=== PATIENT | male | born 1940 | race Caucasian/White ===

== ENCOUNTER 2024-01-04 19:27 | Inpatient (IN) | payer OTHER, SELFPAY ==
[2024-01-04 15:36] VITALS: BP 127/56
[2024-01-04 15:54] LABS: % Basophils 0.4 % (0-2); % Eosinophils 3.2 % (0-6); % Immature Granulocytes 0.4 % (0-0.5); % Lymphocytes 30.1 % (20.5-51.1); % Monocytes 7.6 % (1.7-9.3); % Neutrophils 58.3 % (42.2-75.2); Absolute Eosinophils 0.2 10^3/uL (0-0.7); Absolute Lymphocytes 1.7 10^3/uL (1.2-3.4); Absolute Monocytes 0.4 10^3/uL (0.1-0.6); Absolute Neutrophils 3.3 10^3/uL (1.4-6.5); Hematocrit 36.1 % (39.0-52.0); Hemoglobin 12.6 g/dL (13.0-18.0); Mean Corp Hgb Conc. 34.9 g/dL (33.0-37.0); Mean Corpuscular Hgb 30.5 pg (27.0-31.0); Mean Corpuscular Volume 87.4 fL (80.0-94.0); Mean Platelet Volume 8.8 fL (7.4-10.4); Nucleated Red Blood Cells % 0 % (-); Platelet Count 177 10^3/uL (130-400); Red Blood Cell Count 4.13 10^6/uL (4.70-6.10); Red Cell Dist. Width 13.1 % (11.5-14.5); White Blood Cell Count 5.7 10^3/uL (4.8-10.8)
[2024-01-04 16:08] LABS: Lactic Acid 0.9 mmol/L (0.7-2.0)
[2024-01-04 16:11] LABS: ALT (SGPT) 16 U/L (0-50); AST (SGOT) 30 U/L (17-59); Alkaline Phosphatase 57 U/L (38-126); Blood Urea Nitrogen 21 mg/dl (9-20); Calcium 8.7 mg/dl (8.4-10.2); Carbon Dioxide 27 mmol/L (22-30); Chloride 105 mmol/L (98-107); Glucose 126 mg/dl (70-99); Potassium 4.1 mmol/L (3.5-5.1); Sodium 136 mmol/L (135-145); Total Bilirubin 0.5 mg/dl (0.2-1.3); Total Protein 6.6 g/dl (6.3-8.2); eGFR > 60.00
--- NOTE | 2024-01-04 18:22 | ED.GENMED ---
History of Present Illness
General
Chief Complaint: Skin Problem
Source: patient and spouse
Time Seen by Provider: 01/04/24 17:07
Travel History
Have you had any contact with someone who has COVID-19?: No
Do you have any symptoms of coronavirus? Fever > 100 degrees, chills, cough, shortness of breath, sore throat, loss of taste or smell, muscle aches, or headache?: No
History of Present Illness
History of Present Illness:
83-year-old male with past medical history of coronary artery disease, hyperlipidemia, GERD presenting to the emergency department at the request of primary care physician after the primary care sent patient to an outpatient ultrasound study to rule
out DVT due to the patient experiencing pain, swelling and erythema to the left lower extremity over the last 3 days and ultimately was found to have a large complex fluid collection suspecting to be an abscess within the left lower extremity.
Patient was started on antibiotics by urgent care 3 days ago taking Keflex and doxycycline, saw primary care 2 days ago who ordered the ultrasound for today and upon getting the results back advised patient go to the emergency department for further
evaluation and treatment spouse notes that around a year or so ago patient had cellulitis to his right lower extremity that required multiple rounds of antibiotics and ultimately admission with IV antibiotics for resolution. Patient states he
believes he had 1 day of a tactile fever but never actually took his temperature. No other concerns at time.
Past History
Past History
ED Past Medical History: CAD, GERD, HTN, Hypercholesterolemia and Other (Urinary retention)
ED Past Surgical History: Cardiac
Social History
Tobacco: Non-smoker
Alcohol: None
Drug: None
Personal:
Living: with family
Review of Systems
Review of Systems
All Other Systems: ROS reviewed and negative except as documented in HPI and ROS
Phy Exam
Physical Exam
Physical Exam:
GENERAL: Alert , in no apparent distress
EYE: pupils equal and reactive
NECK: Supple, no significant adenopathy.
ENT: o/p clr, mmm.
NEUROLOGICAL: Alert and oriented
SKIN: Warm and dry, large area of erythema along the medial aspect of the left proximal tib-fib region with large area of induration and fluctuance. Erythema extends outside of the demarcated area that did on Sunday. It is hot to the touch
and tender. Area of erythema measures greater than 6 cm
MUSCULOSKELETAL: Nonpitting edema left lower extremity from the knee distal extending towards the ankle, well perfused.
PSYCH: Normal and appropriate interaction.
Scores
Heart Failure Risk
Heart Failure Risk Score: Not Applicable
Heart Score for Chest Pain Patients
STEMI patient?: Not applicable
Withdrawal Assessment of Alcohol
Withdrawal Assessment Completed?: Not applicable
Course
Orders/Labs/Results
Orders:
Orders
01/04/24 15:45
Blood Culture Q30M
NADIYA Source: Blood/Venous
Specimen Description:
Comment: FROM 2 SEPARATE SITES
01/04/24 15:48
Complete Blood Count/With Diff Urgent
Comprehensive Metabolic Panel Urgent
Lactic Acid Q4H
Comment: ON ICE, CANCEL 2ND ORDER IF FIRST LACTIC ACID LEVEL <2
Blood Culture Q30M
NADIYA Source: Blood/Venous
Specimen Description:
Comment: FROM 2 SEPARATE SITES
01/04/24 17:54
Piperacillin/Tazo 3.375 Gram [Zosyn] 3.375 gram in 50 ml IV NOW
Vancomycin [Vancocin] 2,000 mg 0.9% Sodium Chloride 500 ml [Nss] 500 ml IV NOW
01/04/24 19:45
Lactic Acid Q4H
Comment: ON ICE, CANCEL 2ND ORDER IF FIRST LACTIC ACID LEVEL <2
Abnormal Lab Results
01/04/24
15:48
RBC 4.13 L 10^6/uL
(4.70-6.10)
Hgb 12.6 L g/dL
(13.0-18.0)
Hct 36.1 L %
(39.0-52.0)
BUN 21 H mg/dl
(9-20)
Glucose 126 H mg/dl
(70-99)
01/04/24 15:48
01/04/24 15:48
Vital Signs
Initial and Last Documented VS:
Initial Vital Signs
Temp Pulse Resp BP Pulse Ox
97.8 F 66 16 127/56 96
01/04/24 15:36 01/04/24 15:36 01/04/24 15:36 01/04/24 15:36 01/04/24 15:36
Last Documented Vital Signs
Temp Pulse Resp BP Pulse Ox
97.8 F 66 16 127/56 96
01/04/24 15:36 01/04/24 15:36 01/04/24 15:36 01/04/24 15:36 01/04/24 15:36
Procedures
Incision/Drainage/Joint Aspiration
Left Lower Leg:
Anethesia: 1% Lidocaine with Epi
Preparation: cleaned with Hibiclens
Type of procedure: incise and drain
Nature of site: abscess
Description of abscess: greater than 3cm
Loculations broken up: No
How much fluid was obtained?: scant amount
Fluid description: purulent
Treatment: left open for drainage
MDM/Problems Addressed
Differential Diagnosis Includes:
Abscess, cellulitis, failed outpatient antibiotic, hematoma, I do not have concern for DVT or phlebitis given ultrasound done today shows no evidence for this.
MDM/Problems Addressed:
83-year-old male present emergency department at request of primary care physician to be evaluated for a deep space abscess in the left lower extremity despite being on Keflex and doxycycline for 3 days. I attempted incision and drainage as above
however unfortunately the area is mostly indurated with the abscess pocket being much deeper than I felt comfortable draining. I did obtain a very scant amount of purulence and I did culture this area. Will initiate broad-spectrum antibiotics with
vancomycin and Zosyn. Anticipate patient will need general surgery consult. Patient and are in agreement with this treatment plan.
*Pulse Oximetry
Patient hypoxic: no
*Critical Care Note
Total Time (30-74mins, 75-104mins- exclusive of procedures): Not Applicable
Data Reviewed
Review of Other/Old Records Reveals: Labs, Records and Radiology Studies
Source: patient and spouse
Patient Management
Discussion with other providers: Hospitalist
Escalation/DeEscalation of care consider admission/obs:
Hospitalist is aware and accepts for continued evaluation and treatment
ED Attending Note
-
Portions of this chart may have been created with voice recognition software.� Occasional wrong word or��sound alike� substitutions may have occurred due to the inherent limitations of voice recognition software.
Discharge Plan
Departure
Patient Disposition: Admit
Date of Disposition: 01/04/24
Time of Disposition: 18:22
Presentation/result/management discussed w/ accepting MD/DO: Hospitalist
Discharge Problem:
Abscess of left lower extremity, Cellulitis of left lower extremity
Prescriptions:
No Action
aspirin 81 MG tablet,delayed release (DR/EC)
81 mg PO DAILY
acetaminophen [Tylenol Extra Strength] 500 MG tablet
1,000 mg PO Q6HPRN PRN (Reason: mild pain)
omeprazole 20 MG capsule,delayed release(DR/EC)
20 mg PO DAILY
rosuvastatin [Crestor] 40 MG tablet
40 mg PO DAILY
doxycycline hyclate 100 mg Capsule
100 mg PO BID
Patient Comments:
PATIENT STARTED ON 01/03/24
cephalexin 500 mg Capsule
500 mg PO QID
Patient Comments:
PATIENT STARTED ON 01/03/24
Referrals:
Surekha Mcdonnell MD [Family Provider] -
Interventions
Interventions:
*Risk Screen - Suicide Last Done: 01/04/24 15:36
*General Assessment Last Done: 01/04/24 15:36
*Neglect/Abuse Screening Last Done: 01/04/24 15:36
[2024-01-04 18:48] VITALS: BP 124/64
[2024-01-04] MEDS: ZOSYN 50 IV (18:56)
--- NOTE | 2024-01-04 19:00 | HPS.HSE ---
Family Physician
-
Family Physician: Surekha Mcdonnell
Chief Complaint
-
leg abscess
History of Present Illness
83-year-old male past medical history of paroxysmal atrial fibrillation, basal cell carcinoma chest wall, CAD, BPH, GERD, hypertension, hyperlipidemia, hemochromatosis carrier, cataracts, hearing loss presenting with left lower extremity pain,
swelling and erythema which started 3 days ago. Patient was started on Keflex 2 days ago without improvement. Today he was on doxycycline. He had outpatient ultrasound which showed complex fluid collection and referred to the emergency room. He
did have some chills and night sweats 2 nights ago. He denies any nausea vomiting or diarrhea. He denies any trauma or bug bites to the leg. He recently returned from [place] 2 weeks ago.
His alcohol occasionally. He denies any smoking.
Medical History
Past Medical History
Past Medical History: Reports Other (paroxysmal atrial fibrillation, basal cell carcinoma chest wall, CAD, BPH, GERD, hypertension, hyperlipidemia, hemochromatosis carrier, cataracts, hearing loss)
Past Surgical History: Reports None
Social History
Tobacco: Non-smoker
Alcohol: Occasional
Drug: None
Family History
Family History: Not pertinent
Allergies / Home Medications
Allergies reflects when Allergies were last updated in [facility].
Home Medications with original date entered in [facility]
Allergy/Medication List:
Allergies
Allergy/AdvReac Type Severity Reaction Status Date / Time
No Known Allergies Allergy Verified 01/04/24 15:35
Home Medications
acetaminophen 500 mg tablet (Tylenol Extra Strength) 1,000 mg PO Q6HPRN PRN mild pain 04/17/22
aspirin 81 mg tablet,delayed release 81 mg PO DAILY Blood clot prevention/tx 04/17/22
omeprazole 20 mg capsule,delayed release 20 mg PO DAILY Gastrointestinal issue 04/17/22
rosuvastatin 40 mg tablet (Crestor) 40 mg PO DAILY High cholesterol 04/17/22
cephalexin 500 mg capsule 500 mg PO QID 01/04/24
doxycycline hyclate 100 mg capsule 100 mg PO BID 01/04/24
Review of Systems
-
History Source: Patient
A 12 point ROS was completed and negative except as noted: Yes
Constitutional: Reports No Symptoms
EENT: Reports No Symptoms
Respiratory: Reports No Symptoms
Cardiac: Reports No Symptoms
Abdomen/GI: Reports No Symptoms
: Reports No Symptoms
Musculoskeletal: Reports No Symptoms
Skin: Reports See HPI
Neurological: Reports No Symptoms
Endocrine: Reports No Symptoms
Hematologic/Lymphatic: Reports No Symptoms
Psych: Reports No Symptoms
Physical Exam
Vital Signs
Vital Signs
Temp Pulse Resp BP Pulse Ox
98.4 F 56 16 124/64 95
01/04/24 18:48 01/04/24 18:48 01/04/24 15:36 01/04/24 18:48 01/04/24 18:48
Physical Exam
General: Well Developed, Well Nourished and No Apparent Distress
HEENT: NormoCephalic, Moist mucous membranes and Atraumatic
Respiratory: Clear
Cardiac: S1/S2 and Regular Rhythm; No Murmur or Rub
GI: Soft, Non Tender, Non Distended and Normal Bowel Sounds; No Organomegaly
Rectal: Deferred by Provider
Musculoskeletal: No Clubbing, No Cyanosis and No Edema
Skin: Other (left lower extremity swelling and erythema ); No Rash
Neuro: Nonfocal/grossly intact
Laboratory Results
-
01/04/24 15:48
01/04/24 15:48
Laboratory Results
Lactic Acid 0.9 mmol/L (0.7-2.0) 01/04/24 15:48
Total Bilirubin 0.5 mg/dl (0.2-1.3) 01/04/24 15:48
AST 30 U/L (17-59) 01/04/24 15:48
ALT 16 U/L (0-50) 01/04/24 15:48
Alkaline Phosphatase 57 U/L (38-126) 01/04/24 15:48
Data Reviewed
-
Lab Data: Labs Reviewed by me
Old Records: Reviewed
Impression/Plan
-
IMPRESSION:
PLAN:
# Left lower extremity abscess
-Ultrasound shows 4.9 complex fluid collection in the subcutaneous tissues in the medial proximal calf
-Attempted to be drained by ER but was too deep although some sample was sent for culture
-Blood cultures pending
-Vancomycin/Zosyn given in ER. Continue vancomycin
-general surgery consulted for drainage
Coronary artery disease as per stents/CABG
-Continue aspirin
Brief postoperative paroxysmal atrial fibrillation after CABG
-Not on anticoagulation
Essential hypertension
Hyperlipidemia
-Continue statin
BPH
GERD
-Continue omeprazole
Hemochromatosis carrier
Cataracts
Hearing loss
Constipation
Do not intubate/ CPR only
DVT prophylaxis�heparin
Regular diet
[2024-01-04] MEDS: VANCOCIN 540 MG IV (19:36)
[2024-01-04 19:37] VITALS: BMI 28.7
[2024-01-04 21:33] VITALS: BP 131/65; BMI 27.4
--- NOTE | 2024-01-04 21:39 | PHA.VAN.IN ---
Assessment
- Assessment
Renal Function: Appears similar to baseline
Concomitant Antimicrobials: NONE
- Previous Dosing Experience
Previous Regimen: NONE
AUC Dosing Plan
- Empiric Dosing
Initial / Loading Dose: 2GM
Maintenance Regimen: 1500MG IV Q24H
Estimated AUC (mcg*h/mL): 536
Estimated Peak (mcg*h/mL): 37.2
Estimated Trough (mcg/ml): 11.9
Estimated Half Life (H): 13.6
Pharmacokinetics Vancomycin I
- -
Patient Age: 83
Patient Sex: Male
Vancomycin Day #: 1
Indication: Skin And Soft Tissue (LLE ABSCESS)
Requesting Provider: LEONELA
Height / Weight:
Height 5 ft 8 in
Actual Weight 81.647 kg
Pertinent Past Medical History: BASAL CELL CA; FAILED OUTPT [place]
- Vital Signs / Lab Results
Temp Pulse Resp BP Pulse Ox
97.9 F 56 18 131/65 97
01/04/24 21:33 01/04/24 21:33 01/04/24 21:33 01/04/24 21:33 01/04/24 21:33
Lab Results - Hematology
01/04/24
15:48
WBC 5.7
Lab Results - Chemistry
01/04/24
15:48
BUN 21 H
Creatinine 1.0
Albumin 4.0
01/04/24 01/04/24
15:48 19:45
Lactic Acid 0.9 Cancelled
[2024-01-04] MEDS: HEPARIN 5000 UNITS SC (21:54)
--- NOTE | 2024-01-04 22:33 | PTCARENOTE ---
Receive pt from ER. Pt alert oriented X3, calm and cooperative, in no distress. Pt assist X1 to his bed, steady. Pt oriented to the room, call horan within reach. Pt denies pain, fever or chills. Left lower extremity with [place] wrap around the knee.
VSS (T=97.9, HR=56, RR=18, XG=018/65, SpO2=97% on RA). IV Vancomycin infusing. Will continue to monitor the pt.
[2024-01-04 23:58] VITALS: BP 129/64
[2024-01-05] MEDS: VANCOCIN 300 ML IV (05:28)
[2024-01-05] MEDS: VANCOCIN 300 MG IV (05:28)
[2024-01-05 07:12] LABS: % Basophils 0.6 % (0-2); % Eosinophils 4.5 % (0-6); % Immature Granulocytes 0.2 % (0-0.5); % Lymphocytes 29.2 % (20.5-51.1); % Monocytes 8.8 % (1.7-9.3); % Neutrophils 56.7 % (42.2-75.2); Absolute Eosinophils 0.2 10^3/uL (0-0.7); Absolute Lymphocytes 1.5 10^3/uL (1.2-3.4); Absolute Monocytes 0.5 10^3/uL (0.1-0.6); Absolute Neutrophils 2.9 10^3/uL (1.4-6.5); Hematocrit 34.3 % (39.0-52.0); Hemoglobin 12.2 g/dL (13.0-18.0); Mean Corp Hgb Conc. 35.6 g/dL (33.0-37.0); Mean Corpuscular Hgb 30.7 pg (27.0-31.0); Mean Corpuscular Volume 86.4 fL (80.0-94.0); Mean Platelet Volume 9.2 fL (7.4-10.4); Nucleated Red Blood Cells % 0 % (-); Platelet Count 176 10^3/uL (130-400); Red Blood Cell Count 3.97 10^6/uL (4.70-6.10); Red Cell Dist. Width 12.7 % (11.5-14.5); White Blood Cell Count 5.1 10^3/uL (4.8-10.8)
[2024-01-05 07:21] VITALS: BP 130/70
[2024-01-05 07:34] LABS: ALT (SGPT) 14 U/L (0-50); AST (SGOT) 27 U/L (17-59); Albumin 3.5 g/dl (3.5-5.0); Alkaline Phosphatase 63 U/L (38-126); Blood Urea Nitrogen 17 mg/dl (9-20); Calcium 8.6 mg/dl (8.4-10.2); Carbon Dioxide 27 mmol/L (22-30); Chloride 106 mmol/L (98-107); Estimated Creatinine Clearance 70 ml/min; Glucose 88 mg/dl (70-99); Sodium 138 mmol/L (135-145); Total Bilirubin 0.4 mg/dl (0.2-1.3); Total Protein 5.9 g/dl (6.3-8.2); eGFR > 60.00
--- NOTE | 2024-01-05 09:17 | PHA.VAN.FU ---
Vancomycin Assessment / Plan
- Assessment
Renal Function: Stable
WBC's are: WNL
In the past 24 hrs, patient has been: Afebrile
- Dosing Plan
Continue: vancomycin 1500 mg q24h - first dose 01/04 06
- Monitoring Plan
No level(s) ordered at this time: consider levels after Sunday AM dose ( 4th total dose)
- Follow Up
Pharmacy will continue to follow.
Vancomycin Follow UP
- -
Patient Age: 83
Patient Sex: Male
Vancomycin Day #: 2
Indication: Skin And Soft Tissue (LLE ABSCESS)
Requesting Provider: LEONELA
Height / Weight:
Height 5 ft 8 in
Actual Weight 81.647 kg
Pertinent Past Medical History: BASAL CELL CA; FAILED OUTPT [place]
- Vital Signs / Lab Results
Temp Pulse Resp BP Pulse Ox
98.4 F 65 14 130/70 93
01/05/24 07:21 01/05/24 07:21 01/05/24 07:21 01/05/24 07:21 01/05/24 07:21
Lab Results - Hematology
01/04/24 01/05/24
15:48 05:51
WBC 5.7 5.1
Lab Results - Chemistry
01/04/24 01/05/24
15:48 05:51
BUN 21 H 17
Creatinine 1.0 0.8
Estimated Creat Clear 70
Albumin 4.0 3.5
01/04/24 01/04/24
15:48 19:45
Lactic Acid 0.9 Cancelled
[2024-01-05] MEDS: CRESTOR 40 MG PO (09:32)
[2024-01-05] MEDS: PROTONIX 40 MG PO (09:32)
[2024-01-05] MEDS: ASPIR LOW (ENTERIC COATED) 81 MG PO (09:32)
[2024-01-05] MEDS: HEPARIN SC (09:35)
[2024-01-05] MEDS: DILAUDID 0.5 MG IV (09:51)
--- NOTE | 2024-01-05 11:05 | CON.GS ---
Addendum entered and electronically signed by Steven Leavitt MD 01/05/24 11:58:
Patient seen and examined with resident. Agree with assessment plan as documented below.
Patient is an 83 yo M with a PMH of HTN, HLD, CAD s/p CABG, A-fib (perioperatively, on ASA), BPH, hemochromatosis carrier, and BCC. He has had prior issues with RLE cellulitis back in 2022. He presents with an area overlying his medial LEFT knee
with erythema, swelling, and pain. He initially presented to an urgent care where reportedly he had an ultrasound which demonstrated a 5 cm fluid collection. He was initially prescribed Keflex with no significant improvement. He presented to the
ER after no improvement on Doxycycline. No reported trauma. He did recently return from a trip to [place], but denies any known bites or breaks in the skin overlying this area. I&D performed in the ED with concern for incomplete drainage.
Overnight he noticed increased drainage with significant improvement in the swelling. He notes improvement in pain and erythema.
Gen: NAD
LLE: 2 cm area overlying medial LEFT knee with erythema, and swelling, 2 cm skin incision from ED, minimal bloody drainage, erythema receded from prior markings, minimal pain, mild palpable remaining fluctuance
Wound cultures obtained at bedside. Area probed with Q-tip and a clamp popping into the pocket and releasing a small amount of serous and bloody drainage, no mary lou purulence. Patient tolerated bedside procedure well. Area packed with dry gauze,
covered with dry gauze, Luke wrap, and Toy wrap.
83 year old M history of CABG (2016), RLE cellulitis (2022) who presented to ED 01/04/24 with mild LLE pain and outpatient ultrasound imaging concerning for LLE abscess. Collection was successfully drained this AM at bedside.
Recommendations:
- Regular diet
- DC on 7-10 days PO antibiotics, will need to follow-up on wound culture data and change as necessary
- Wound care: remove packing in 24 hours, cover with dry gauze daily and as needed, hold in place with Kerlix and TOY
- Limit activities for 1-2 weeks
- Continue other active home medications
- OK for DC from surgical perspective.
Original Note:
Consultation
-
Reason for Consultation: RLE Abscess
Medical History
-
Chief Complaint: Leg Pain
History of Present Illness:
83 year old M history of CABG (2016), RLE cellulitis (2022) who presented to ED 01/04/24 with outpatient ultrasound imaging concerning for LLE abscess. Per patient, noted some mild knee pain a few days prior with walking. who is a nurse noted
small confluent mass and surrounding area of erythema surrounding RLE and was advised to visit urgent care. LE duplex ultrasound performed showed no evidence of DVT but noted a complex collection of fluid concerning for abscess. Patient was started
on keflex and doxycycline and advised to come to ED, where drainage was attempted but minimal drainage given apparent deep nature. Patient denies any symptoms beyond mild discomfort with extended periods of walking. He did recently return from a
trip to [facility] where he notes no possible injuries and denies knowledge of any insect bites. Other relevant history includes an episode of RLE cellulitis in 2022, CABG with Right SVG harvest in 2016, and LLE vein stripping for varicose
veins.
General surgery was consulted for assistance with drainage and he was subsequently admitted to [facility]. Overnight, patient felt a 'pop' while laying on left side and noted drainage to increase.
On examination this AM, light pressure led to drainage of serous fluid. At bedside, a sterile roel clamp was used to spread the incision to confirm entrance into abscess cavity. 2 sets of cultures were sent, the wound was packed with gauze and
further secured with additional toy wrap.
Past Medical History
Past Medical History: Reviewed & Noncontributory
Past Surgical History: Reviewed & Noncontributory
Allergies / Home Medications
Allergy/AdvReac Type Severity Reaction Status Date / Time
No Known Allergies Allergy Verified 01/04/24 15:35
Medication Instructions Recorded Confirmed Type
acetaminophen 500 mg tablet 1,000 mg PO Q6HPRN PRN mild pain 04/17/22 01/04/24 History
(Tylenol Extra Strength)
aspirin 81 mg tablet,delayed 81 mg PO DAILY Blood clot 04/17/22 01/04/24 History
release prevention/tx
omeprazole 20 mg capsule,delayed 20 mg PO DAILY Gastrointestinal 04/17/22 01/04/24 History
release issue
rosuvastatin 40 mg tablet (Crestor) 40 mg PO DAILY High cholesterol 04/17/22 01/04/24 History
cephalexin 500 mg capsule 500 mg PO QID 01/04/24 01/04/24 History
doxycycline hyclate 100 mg capsule 100 mg PO BID 01/04/24 01/04/24 History
Review of Systems
-
All other systems: Negative unless noted
A 10 point review of systems was completed, and was negative except as per HPI.
Physical Exam
Vital Signs
Temp Pulse Resp BP Pulse Ox
98.4 F 65 14 130/70 93
01/05/24 07:21 01/05/24 07:21 01/05/24 07:21 01/05/24 07:21 01/05/24 07:21
01/04/24 01/05/24 01/06/24
06:59 06:59 07:59
Actual Weight 81.647 kg
Body Mass Index (BMI) 27.4
Lab Results
01/05/24 05:51
01/05/24 05:51
WBC 5.1 10^3/uL (4.8-10.8) 01/05/24 05:51
Hgb 12.2 g/dL (13.0-18.0) L 01/05/24 05:51
Hct 34.3 % (39.0-52.0) L 01/05/24 05:51
Plt Count 176 10^3/uL (130-400) 01/05/24 05:51
Abs Immat Gran (auto) 0.0 10^3/uL (0-0.05) 01/05/24 05:51
Neutrophils % 56.7 % (42.2-75.2) 01/05/24 05:51
Physical Exam
General: Well Developed
HEENT: Normocephalic
Respiratory: Clear
Cardiac: S1/S2
GI: Soft, Non Tender and Non Distended
Skin: Warm and Other (3x3cm confluent collection noted immediately inferomedial to patella with surrounding erythema, draining SS fluid )
Data Reviewed
-
Labs: Labs Reviewed by me and Discussed with Physician
Assessment / Plan
-
83 year old M history of CABG (2016), RLE cellulitis (2022) who presented to ED 01/04/24 with mild LLE pain and outpatient ultrasound imaging concerning for LLE abscess. Collection was successfully drained this AM at bedside.
Recommendations:
- OK to resume diet
- Defer discharge planning to main provider team, but OK for discharge from general surgery standpoint
- Continue other active home medications
- Please advise patient to change abscess site with gauze daily. No packing necessary.
- Follow-up lab cultures for outpatient antibiotic adjustment as necessary.
--- NOTE | 2024-01-05 14:08 | W.PN.HOSP.TC ---
Today's Communication/Plan
-
see A/P
Assessment / Plan
Assessment / Plan
83-year-old male past medical history of paroxysmal atrial fibrillation, basal cell carcinoma chest wall, CAD, BPH, GERD, hypertension, hyperlipidemia, hemochromatosis carrier, cataracts, hearing loss; p/w left lower extremity pain, swelling and
erythema which started 3 days ago [employer].�
Patient was started on Keflex 2 days ago [employer] without improvement.�He was on doxycycline.� He had outpatient ultrasound which showed complex fluid collection and referred to the emergency room.�
He did have some chills and night sweats 2 nights ago [employer].�He recently returned from [place] 2 weeks ago.
His alcohol occasionally.� He denies any smoking.
A/P:
# Left lower extremity abscess below knee
Ultrasound shows 4.9 complex fluid collection in the subcutaneous tissues in the medial proximal calf
Attempted to be drained by ER but was too deep although some sample was sent for culture
s/p bedside drainage by GS
Follow blood Cx, follow wound Cx
Cont Vancomycin, add Ancef
Check BL LE US (recent long flight)
# Coronary artery disease as per stents/CABG
Continue aspirin
# Brief postoperative paroxysmal atrial fibrillation after CABG
Not on anticoagulation
# Essential hypertension
# Hyperlipidemia
Continue statin
# BPH
# GERD
Continue omeprazole
# Hemochromatosis carrier
# Cataracts
# Hearing loss
# Constipation
Do not intubate/ CPR only
DVT prophylaxis�heparin SQ
Regular diet
DW at bedside
Anticipated Discharge: Within 24 hours
Subjective/Interval History
-
Date of Service: January 05, 2024
Objective Data
-
Labs:
Laboratory Results
01/05/24
05:51
WBC 5.1
Hgb 12.2 L
Hct 34.3 L
Plt Count 176
Sodium 138
Potassium 4.0
Chloride 106
Carbon Dioxide 27
BUN 17
Creatinine 0.8
Glucose 88
Calcium 8.6
Total Bilirubin 0.4
AST 27
ALT 14
Alkaline Phosphatase 63
Vital Signs:
Vital Signs
Temp Pulse Resp BP Pulse Ox
36.9 C 65 14 130/70 93
01/05/24 07:21 01/05/24 07:21 01/05/24 07:21 01/05/24 07:21 01/05/24 12:44
I&O
01/04/24 01/05/24 01/06/24
06:59 06:59 07:59
Intake Total 300 / 300
Output Total 750 / 750
Balance -450 / -450
Review of Systems
-
All other systems: Reviewed and negative
Skin: Reports Other (L abscess below the knee)
Physical Exam
-
General: Well Developed, Well Nourished, No Apparent Distress, Comfortable and Conversant; Negative Respiratory Distress
HEENT: Normocephalic, Atraumatic, Nose Appears Normal and Ears Appear Normal; Negative Oxygen
Respiratory: Clear to Auscultation and Non Labored Respirations; Negative Accessory Resp Muscle Use
Cardiac: Regular Rhythm and S1/S2
GI: Soft, Nontender, Nondistended and Normal Bowel Sounds
Skin: Warm, Dry and Lesions (L abscess drained, dressed)
Neuro: Awake, Alert, Oriented, AO x 3 and Nonfocal/Grossly Intact
Psych: Calm and Intact Judgement/Insight
Data Reviewed
-
Labs: Labs Reviewed by me
[2024-01-05 15:26] VITALS: BP 115/63
[2024-01-05] MEDS: ANCEF 5 IV ×2 (15:59→23:00)
[2024-01-05] MEDS: MELATONIN 5 MG PO (21:22)
[2024-01-05 23:24] VITALS: BP 127/59
[2024-01-06] MEDS: VANCOCIN 300 ML IV (06:18)
[2024-01-06] MEDS: VANCOCIN 300 MG IV (06:18)
[2024-01-06] MEDS: TUMS 2 TABLET PO (06:18)
[2024-01-06 06:40] LABS: Hematocrit 35.9 % (39.0-52.0); Hemoglobin 12.8 g/dL (13.0-18.0); Mean Corp Hgb Conc. 35.7 g/dL (33.0-37.0); Mean Corpuscular Hgb 30.9 pg (27.0-31.0); Mean Corpuscular Volume 86.7 fL (80.0-94.0); Mean Platelet Volume 8.8 fL (7.4-10.4); Platelet Count 178 10^3/uL (130-400); Red Blood Cell Count 4.14 10^6/uL (4.70-6.10); Red Cell Dist. Width 12.9 % (11.5-14.5); White Blood Cell Count 4.9 10^3/uL (4.8-10.8)
[2024-01-06 07:04] LABS: Blood Urea Nitrogen 18 mg/dl (9-20); Calcium 9.2 mg/dl (8.4-10.2); Carbon Dioxide 26 mmol/L (22-30); Chloride 103 mmol/L (98-107); Estimated Creatinine Clearance 70 ml/min; Glucose 104 mg/dl (70-99); Sodium 138 mmol/L (135-145); eGFR > 60.00
[2024-01-06 07:18] VITALS: BP 119/62
--- NOTE | 2024-01-06 07:36 | PTCARENOTE ---
Pt states his indigestion from overnight has not resolved and he is having chest pain with radiation to his left chest. Ekg performed and MD notified. Vitals 119/62 hr 60
[2024-01-06] MEDS: ANCEF 5 IV (08:21)
[2024-01-06] MEDS: ASPIR LOW (ENTERIC COATED) 81 MG PO (08:23)
[2024-01-06] MEDS: CRESTOR 40 MG PO (08:23)
[2024-01-06] MEDS: PROTONIX 40 MG PO (08:23)
[2024-01-06 09:14] LABS: Troponin I < 0.012 ng/ml
--- NOTE | 2024-01-06 10:35 | W.PN.SURGUPD ---
Surgical Update
Surgical Update
Patient clinically stable with signs of improvement in erythema and swelling. Afebrile, WBC normal. Cultures show WBC, no microorganisms. US lower extremities to rule out DVT pending. Dressing changed by surgery today. Okay to DC from surgical
perspective. Please call with any questions or concerns.
--- NOTE | 2024-01-06 10:40 | PHA.VAN.FU ---
Vancomycin Assessment / Plan
- Assessment
Renal Function: Stable
WBC's are: WNL
In the past 24 hrs, patient has been: Afebrile
Concomitant Antimicrobials: cefazolin
- Dosing Plan
Continue: vancomycin 1500 mg q24h - first maint dose 01/05/24 0600
- Monitoring Plan
No level(s) ordered at this time: likely DC within 24 hours; will order levels if still here after tomorrow
- Follow Up
Pharmacy will continue to follow.
Vancomycin Follow UP
- -
Patient Age: 83
Patient Sex: Male
Vancomycin Day #: 3
Indication: Skin And Soft Tissue (LLE ABSCESS)
Requesting Provider: LEONELA
Height / Weight:
Height 5 ft 8 in
Actual Weight 81.647 kg
Pertinent Past Medical History: BASAL CELL CA; FAILED OUTPT [place]
- Vital Signs / Lab Results
Temp Pulse Resp BP Pulse Ox
97.8 F 60 16 119/62 95
01/06/24 07:18 01/06/24 07:18 01/06/24 07:18 01/06/24 07:18 01/06/24 07:18
Lab Results - Hematology
01/04/24 01/05/24 01/06/24
15:48 05:51 06:15
WBC 5.7 5.1 4.9
Lab Results - Chemistry
01/04/24 01/05/24 01/06/24
15:48 05:51 06:15
BUN 21 H 17 18
Creatinine 1.0 0.8 0.8
Estimated Creat Clear 70 70
Albumin 4.0 3.5
01/04/24 01/04/24
15:48 19:45
Lactic Acid 0.9 Cancelled
Microbiology Results
01/05/24 09:58 Wound Culture - Preliminary
Leg - Left Gram Stain - Preliminary
01/05/24 09:58 Anaerobic Culture - Preliminary
Leg - Left Culture pending. Anaerobic cultures are examined after 3
days incubation. Additional information to follow.
01/04/24 23:10 MRSA Screen - Final
Nose No Methicillin Resistant Staphylococcus aureus isolated.
01/04/24 18:43 Blood Culture - Preliminary
Blood/Venous No Growth in 24 hours- Final report to follow
01/04/24 15:48 Blood Culture - Preliminary
Blood/Venous No Growth in 24 hours- Final report to follow
01/04/24 18:43 Gram Stain - Preliminary
Leg - Left
--- NOTE | 2024-01-06 11:12 | W.PN.HOSP.TC ---
Addendum entered and electronically signed by Ilana Quiles MD 01/06/24 14:26:
total DC time 35 min
Original Note:
Today's Communication/Plan
-
see A/P
Assessment / Plan
Assessment / Plan
83-year-old male past medical history of paroxysmal atrial fibrillation, basal cell carcinoma chest wall, CAD, BPH, GERD, hypertension, hyperlipidemia, hemochromatosis carrier, cataracts, hearing loss; p/w left lower extremity pain, swelling and
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
Patient was started on Keflex 2 days ago CHIEF OPERATING ENGINEER without improvement.�He was on doxycycline.� He had outpatient ultrasound which showed complex fluid collection and referred to the emergency room.�
He did have some chills and night sweats 2 nights ago CHIEF OPERATING ENGINEER.�He recently returned from [place] 2 weeks ago.
His alcohol occasionally.� He denies any smoking.
A/P:
# Left lower extremity abscess below knee
Ultrasound shows 4.9 complex fluid collection in the subcutaneous tissues in the medial proximal calf
Attempted to be drained by ER but was too deep although some sample was sent for culture
s/p bedside drainage by 01/04
Blood Cx negative.
Pending wound Cx- can follow up outpatient.
Cont Vancomycin, added Ancef -> can discharge on Keflex and Doxycycline for total 14 days (avoid sun and milk/dairy product while on doxycycline)
BL LE US neg for DVT
# Chest pain likely due to dyspepsia, resolved
EKG unrevealing
trop neg
# Coronary artery disease as per stents/CABG
Continue aspirin
# Brief postoperative paroxysmal atrial fibrillation after CABG
Not on anticoagulation
# Essential hypertension
# Hyperlipidemia
Continue statin
# BPH
# GERD
Continue omeprazole
# Hemochromatosis carrier
# Cataracts
# Hearing loss
# Constipation
Do not intubate/ CPR only
DVT prophylaxis�heparin SQ
Regular diet
DW RN
called x2 to update, call not answered
Anticipated Discharge: Today
Subjective/Interval History
-
Date of Service: January 06, 2024
Objective Data
-
Labs:
Laboratory Results
01/06/24
06:15
WBC 4.9
Hgb 12.8 L
Hct 35.9 L
Plt Count 178
Sodium 138
Potassium 4.0
Chloride 103
Carbon Dioxide 26
BUN 18
Creatinine 0.8
Glucose 104 H
Calcium 9.2
Vital Signs:
Vital Signs
Temp Pulse Resp BP Pulse Ox
36.6 C 60 16 119/62 95
01/06/24 07:18 01/06/24 07:18 01/06/24 07:18 01/06/24 07:18 01/06/24 07:18
I&O
01/05/24 01/06/24 01/07/24
05:59 06:59 06:59
Intake Total
Output Total
Balance
Review of Systems
-
All other systems: Reviewed and negative
Skin: Reports Other (L abscess below the knee s/p I/D)
Physical Exam
-
General: Well Developed, Well Nourished, No Apparent Distress, Comfortable and Conversant; Negative Respiratory Distress
HEENT: Normocephalic, Atraumatic, Nose Appears Normal and Ears Appear Normal; Negative Oxygen
Respiratory: Clear to Auscultation and Non Labored Respirations; Negative Accessory Resp Muscle Use
Cardiac: Regular Rhythm and S1/S2
GI: Soft, Nontender, Nondistended and Normal Bowel Sounds
Skin: Warm, Dry and Lesions (L abscess belowthe knee drained, dressed)
Neuro: Awake, Alert, Oriented, AO x 3 and Nonfocal/Grossly Intact
Psych: Calm and Intact Judgement/Insight
Data Reviewed
-
Ultrasound: Report Reviewed by me and Discussed with Patient
Labs: Labs Reviewed by me
[2024-01-06 12:27] VITALS: BP 124/65
--- NOTE | 2024-01-06 13:45 | CM ---
CM following re: d/c planning
Chart reviewed
CM met with the patient & his spouse at bedside; IA completed
Pt states he and his spouse in a 2SH with 2 or 3STE and a full flight to the 2nd floor
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
Pt has no previous SNF hx, has had home care however doesn't recall the agency; and has a r/w and pair of crutches for use if needed
Pt has prescription coverage and rx's are filled at [facility] on [address] Lenora Adorno
Pt PCP-Surekha Mcdonnell
Pt has been cleared for medically for d/c and has no needs
IMM was reviewed and copy provided
Pt states his spouse will transport him home at time of d/c
PLAN; d/c home no needs
--- NOTE | 2024-01-06 14:13 | W.DCSUMMARY ---
Discharge Summary
Discharge Data
Date of Admission: 01/04/24
Date of Discharge: 01/06/24
-
Pending Results: Yes
Additional Pending Results:
wound culture results
Hospital Course
Principal Diagnosis:
Left lower extremity below the knee abscess.
Chronic Diagnoses:�
Coronary artery disease as per stents/CABG
Brief postoperative paroxysmal atrial fibrillation after CABG, not on anticoagulation
Essential hypertension
Hyperlipidemia
Benign prostate hypertrophy
Gastroesophageal reflux disease
Hemochromatosis carrier
Cataracts
Consultations:�
General surgery
Procedures:�
Bedside left leg below knee abscess drainage by surgery 01/04
Clinical course:�
This is a 83-year-old male with past medical history as stated above, who presented with left lower extremity (below the knee) pain, swelling and erythema that started 3 days ago prior to admission.
His outpatient ultrasound showed a complex fluid collection and he was sent in for I&D.
Problem 1:
Left lower extremity below the knee abscess.
His ultrasound shows 4.9 complex fluid collection in the subcutaneous tissues.
The abscess was drained by surgery at bedside.
His wound culture was still pending at the time of discharge- the result can be followed up outpatient.
He received Vancomycin and Ancef while in the hospital, and he can continue with Keflex and Doxycycline (total 14 days) following discharge.
His bilateral lower extremity ultrasound was negative for deep vein thrombosis.
Problem 2:
Chest pain likely due to dyspepsia, resolved.
His EKG was unrevealing and troponin were negative.
As for the rest of his medical problems, they were stable during his hospital stay.
Discharge Plan
-
Patient Disposition: Home with Home Care
Discharge Diagnosis/Procedures: Left lower extremity abscess below knee status post bedside drainage by surgery 01/04
Condition: Good
Diet: As tolerated, Low Fat, Low Cholesterol and Low Sodium
Activity: As tolerated
Driving Restrictions: As prior to admission
Bathing Restrictions: OK to Shower
Wound Care: Remove old dressing/remaining packing daily and either cleanse or shower. Cover your wound with a dry gauze pad. Wrap with a gauze dressing and a [place] wrap overlay to hold gauze in place. Do this daily and as needed.
Referrals:
Surekha Mcdonnell MD [Family Provider] - in less than 1 week
Additional Discharge Medication Instructions: Continue antibiotics Keflex and Doxycycline for another 13 days.
Avoid sun exposure and milk/dairy product while on doxycycline
Prescriptions:
New
cephalexin 500 mg capsule
500 mg PO Q6H 13 Days Qty: 52 0RF
doxycycline hyclate 100 mg capsule
100 mg PO BID 13 Days Qty: 26 0RF
Continued
aspirin 81 MG tablet,delayed release (DR/EC)
81 mg PO DAILY
acetaminophen [Tylenol Extra Strength] 500 MG tablet
1,000 mg PO Q6HPRN PRN (Reason: mild pain)
omeprazole 20 MG capsule,delayed release(DR/EC)
20 mg PO DAILY
rosuvastatin [Crestor] 40 MG tablet
40 mg PO DAILY
Discontinued
doxycycline hyclate 100 mg Capsule
100 mg PO BID
Patient Comments:
PATIENT STARTED ON 01/03/24
cephalexin 500 mg Capsule
500 mg PO QID
Patient Comments:
PATIENT STARTED ON 01/03/24
Discharge Orders:
Discharge Patient (As Directed); Ordered 01/06/24
Ordered By: Ilana Quiles
Discharge Date and Time
Discharge Date/Time: 01/06/24 12:56
== END 2024-01-06 12:56 | disposition home health service (06) | DRG 603 ==
LOC: 4 EAST ACU 19:27
PROVIDERS: Emergency Medicine; ADMITTING PHYSICIAN Hospitalist; ATTENDING PHYSICIAN Internal Medicine; CONSULT PHYSICIAN Surgery; EMERGENCY PHYSICIAN Emergency Medicine; FAMILY PHYSICIAN Family Medicine
PROC: 0J9P3ZX Drainage of Left Lower Leg Subcutaneous Tissue and Fascia, Percutaneous Approach, Diagnostic (ICD-10-PCS; 2024-01-05)
DX: L02.416 Cutaneous abscess of left lower limb (principal); I25.10 Atherosclerotic heart disease of native coronary artery without angina pectoris; I10 Essential (primary) hypertension; E78.00 Pure hypercholesterolemia, unspecified; N40.1 Benign prostatic hyperplasia with lower urinary tract symptoms; R33.8 Other retention of urine; K21.9 Gastro-esophageal reflux disease without esophagitis; R07.9 Chest pain, unspecified; L03.116 Cellulitis of left lower limb; Z79.82 Long term (current) use of aspirin; Z95.1 Presence of aortocoronary bypass graft
CPT/HCPCS: 10060; 80048; 80053; 83605; 84484; 85025; 85027; 87040; 87070; 87075; 87147; 87205; 93005; 93970; 96365; 96375; 99284

== ENCOUNTER 2024-10-13 06:31 | Day surgery (SDC) | payer OTHER, SELFPAY ==
[2024-10-06 08:48] LABS: Hematocrit 42.4 % (39.0-52.0); Hemoglobin 14.9 g/dL (13.0-18.0); Mean Corp Hgb Conc. 35.1 g/dL (33.0-37.0); Mean Corpuscular Hgb 31.3 pg (27.0-31.0); Mean Corpuscular Volume 89.1 fL (80.0-94.0); Mean Platelet Volume 9.1 fL (7.4-10.4); Platelet Count 163 10^3/uL (130-400); Red Blood Cell Count 4.76 10^6/uL (4.70-6.10); Red Cell Dist. Width 12.7 % (11.5-14.5); White Blood Cell Count 5.4 10^3/uL (4.8-10.8)
[2024-10-06 09:00] LABS: Urine Albumin Negative (Neg - Trace); Urine Bilirubin Negative (Negative); Urine Character Clear (Clear); Urine Color Yellow; Urine Glucose Negative (Negative); Urine Ketone Negative (Negative); Urine Leukocyte Trace (Negative); Urine Nitrite Negative (Negative); Urine Occult Blood Negative (Negative); Urine Specific Gravity 1.005 (<1.030); Urine Urobilinogen Negative (Neg - 1+)
[2024-10-06 09:11] LABS: Blood Urea Nitrogen 18 mg/dl (9-20); Calcium 9.3 mg/dl (8.4-10.2); Carbon Dioxide 28 mmol/L (22-30); Chloride 105 mmol/L (98-107); Glucose 107 mg/dl (70-99); Potassium 4.2 mmol/L (3.5-5.1); Sodium 141 mmol/L (135-145); eGFR > 60.00
[2024-10-06 09:31] LABS: Urine Bacteria Few (Negative); Urine White Cell 16-20 /HPF (0-5)
[2024-10-06 13:52] VITALS: BMI 29.3
--- NOTE | 2024-10-07 08:25 | PTCARENOTE ---
Patients 10/06 [facility] FRANKLYN Bruce @ Dr. Harris office notified
[2024-10-13] VITALS (11 sets, daily range): BP systolic 121–152; BP diastolic 62–81; BMI 29.3; BMI 30.6
[2024-10-13] MEDS: NORMOSOL-R/PLASMALYTE-A 1000 IV (13:40)
--- NOTE | 2024-10-13 17:14 | W.IMMPOSTOP ---
Surgical Immed Post Op Note
-
Primary Surgeon: Gwen
Pre-op Diagnosis: BPH with CASTILLO (cystoscopic/urodynamic confirmation)
Post-op Diagnosis: Same
Procedure Performed: TURP
Anesthesia Type: LMA
Specimen / Cultures: prostate chips/None
Estimated Blood Loss: <1 cc
Drains: 22Fr 3-way catheter (30 cc in balloon)
Complications: None
Operative Findings: thorough resection of prostatic adenoma down to visible capsule - primarily lateral lobe obstruction, appropriate hemostasis on final cystoscopy, no involvement of bilateral UOs, verumontanum, external urethral sphincter w/
margins of resection
D/w spouse (Thais) post-op
[2024-10-13] MEDS: Pyridium 200 MG PO (17:39)
[2024-10-13] MEDS: DETROL LA 4 MG PO (17:39)
--- NOTE | 2024-10-13 19:48 | TRANSFER ---
report given to LAZARO Parr. pt to be transported with all belongings, CBI infusing, in no acute distress.
--- NOTE | 2024-10-13 20:00 | PTCARENOTE ---
Patient transferred from PACU. Patient was transferred into the bed. Patient AAOx3, able to make needs known. Call horan within reach. CBI running, urine orange/punch color, patient has no clots at this time. Will continue with current plan.
[2024-10-13] MEDS: MELATONIN 10 MG PO (23:01)
[2024-10-13] MEDS: FLOMAX 0.4 MG PO (23:02)
[2024-10-13] MEDS: PROSCAR 5 MG PO (23:03)
[2024-10-13] MEDS: ZETIA 10 MG PO (23:03)
[2024-10-14 03:13] VITALS: BP 131/66
[2024-10-14 07:30] VITALS: BP 142/64
[2024-10-14 08:11] LABS: % Basophils 0.1 % (0-2); % Immature Granulocytes 0.4 % (0-0.5); % Lymphocytes 14.1 % (20.5-51.1); % Monocytes 1.8 % (1.7-9.3); % Neutrophils 83.6 % (42.2-75.2); Absolute Lymphocytes 1.1 10^3/uL (1.2-3.4); Absolute Monocytes 0.1 10^3/uL (0.1-0.6); Absolute Neutrophils 6.5 10^3/uL (1.4-6.5); Hematocrit 38.6 % (39.0-52.0); Hemoglobin 13.5 g/dL (13.0-18.0); Mean Corpuscular Hgb 31.2 pg (27.0-31.0); Mean Corpuscular Volume 89.1 fL (80.0-94.0); Nucleated Red Blood Cells % 0 % (-); Platelet Count 149 10^3/uL (130-400); Red Blood Cell Count 4.33 10^6/uL (4.70-6.10); Red Cell Dist. Width 12.3 % (11.5-14.5); White Blood Cell Count 7.8 10^3/uL (4.8-10.8)
[2024-10-14] MEDS: CRESTOR 40 MG PO (08:19)
[2024-10-14] MEDS: ORETIC 12.5 MG PO (08:19)
[2024-10-14] MEDS: PROTONIX 40 MG PO (08:20)
[2024-10-14] MEDS: METAMUCIL, KONSYL 1 PACKET PO (08:20)
[2024-10-14 08:57] LABS: Blood Urea Nitrogen 18 mg/dl (9-20); Calcium 8.8 mg/dl (8.4-10.2); Carbon Dioxide 21 mmol/L (22-30); Chloride 104 mmol/L (98-107); Estimated Creatinine Clearance 76 ml/min; Glucose 131 mg/dl (70-99); Potassium 4.2 mmol/L (3.5-5.1); Sodium 138 mmol/L (135-145); eGFR > 60.00
--- NOTE | 2024-10-14 10:32 | W.DS.TRANS ---
DC Summary - Concrete Floater
-
Discharge Instructions:
Sleep Apnea Risk Intermediate
Discharge Diagnosis/Procedures BPH s/p TURP
Diet Regular
Activity No strenuous activity
Additional Activity No strenuous exercise, heavy lifting, or sexual
activity for 7 days after your surgery
Driving Restrictions No driving for 24 hours
Bathing Restrictions None
Blood Work n/a
Wound Care n/a
Instructions:
Stand-Alone Forms:
Changes to Home Medications: No
Discharge Medications:
DC Medications w/original date entered in i.Meter
acetaminophen 500 mg tablet (Tylenol Extra Strength) 1,000 mg PO Q6HPRN PRN mild pain 04/17/22
aspirin 81 mg tablet,delayed release 81 mg PO DAILY Blood clot prevention/tx 04/17/22
omeprazole 20 mg capsule,delayed release 20 mg PO DAILY Gastrointestinal issue 04/17/22
rosuvastatin 40 mg tablet (Crestor) 40 mg PO DAILY High cholesterol 04/17/22
ezetimibe 10 mg tablet 10 mg PO HS 10/07/24
finasteride 5 mg tablet 5 mg PO HS 10/07/24
hydrochlorothiazide 12.5 mg tablet 12.5 mg PO DAILY 10/07/24
nitroglycerin 0.4 mg sublingual tablet 0.4 mg sublingual DAILY PRN chest pain 10/07/24
psyllium husk 3.4 gram/5.4 gram oral powder (Metamucil) 1 tbsp PO DAILY 10/07/24
tamsulosin 0.4 mg capsule 0.4 mg PO HS 10/07/24
amoxicillin 500 mg-potassium clavulanate 125 mg tablet (Augmentin) 1 tab PO BID 5 days #10 tabs 10/14/24
phenazopyridine 200 mg tablet (Pyridium) 200 mg PO BID PRN dysuria 4 days #8 tabs 10/14/24
Home Medication Changes
Pending Results: Yes
Additional Pending Results:
surgical patholoy
--- NOTE | 2024-10-14 10:50 | CM ---
CM reviewed chart, patient seen bedside, initial assessment completed. Patient [facility]. Patient lives with his in a multiple level home, three steps to enter. Patient denies use of DME, VN, or SNF. Patient confirms PCP Surekha Mcdonnell,
pharmacy [facility] [address] Mccann. Patient confirms prescription coverage, denies insecurities at home. Patient denies any needs upon discharge, reports his will be here around 12:00 p.m. and will provide transportation home. CM will continue to follow
for all discharge planning needs.
Plan; home with , no needs.
[2024-10-14 11:32] VITALS: BP 126/67
--- NOTE | 2024-10-14 13:00 | PTCARENOTE ---
Patient has not voided post Goldberg removal, MD Hidalgo is aware and states okay with patient self catheterizing before discharge. pt successfully self catheterized. Patient ok for d/c
== END 2024-10-14 13:28 | disposition home or self-care (01) ==
LOC: SDS 06:31
PROVIDERS: ATTENDING PHYSICIAN Surgery; FAMILY PHYSICIAN Family Medicine
DX: C61 Malignant neoplasm of prostate (principal); N32.0 Bladder-neck obstruction; R33.8 Other retention of urine
CPT/HCPCS: 52601; 88305; 36415; 80048; 81003; 81015; 85025; 85027; 87070

== ENCOUNTER → 2024-11-17 11:29 | Outpatient (REF) | payer OTHER, SELFPAY | LOC: MRI 3T 11:29 | PROVIDERS: ATTENDING PHYSICIAN Surgery; FAMILY PHYSICIAN Family Medicine | DX: C61 Malignant neoplasm of prostate (principal) | CPT/HCPCS: 72197; A9575 ==

== ENCOUNTER → 2024-12-04 12:37 | Outpatient (REF) | payer OTHER, SELFPAY | LOC: PET 12:37 | PROVIDERS: ATTENDING PHYSICIAN Surgery | DX: C61 Malignant neoplasm of prostate (principal) | CPT/HCPCS: 78815 ==

== ENCOUNTER → 2024-12-09 14:22 | Outpatient (REF) | payer OTHER, SELFPAY | LOC: RAD 14:22 | PROVIDERS: ATTENDING PHYSICIAN Internal Medicine Hematology & Oncology; FAMILY PHYSICIAN Family Medicine | DX: C79.51 Secondary malignant neoplasm of bone (principal); C61 Malignant neoplasm of prostate | CPT/HCPCS: 73502 ==

== ENCOUNTER → 2025-01-01 08:48 | Outpatient (REF) | payer OTHER, SELFPAY | LOC: RAD 08:48 | PROVIDERS: ATTENDING PHYSICIAN Internal Medicine Hematology & Oncology; FAMILY PHYSICIAN Family Medicine | DX: C79.51 Secondary malignant neoplasm of bone (principal); C61 Malignant neoplasm of prostate | CPT/HCPCS: 77080 ==